=== PATIENT | male | born 1985 | race African-American/Black ===

== ENCOUNTER 2021-03-01 20:14 | Emergency (ER) | payer OTHER ==
[2021-03-01 20:18] VITALS: BP 152/90; PULSE 87; TEMP 98.1; BMI 29.2
[2021-03-01] MEDS ORDERED: KETOROLAC TROMETHAMINE 30 MG/1 ML VIAL IM ONE (20:29)
[2021-03-01] MEDS ORDERED: KETOROLAC TROMETHAMINE 30 MG/1 ML VIAL ONE (20:32)
== END 2021-03-01 21:20 | disposition home or self-care (01) ==
LOC: JERFT 20:14
PROC: 3E023GC Introduction of Other Therapeutic Substance into Muscle, Percutaneous Approach (ICD-10-PCS; principal; 2021-03-01)
DX: M54.2 Cervicalgia (principal); M25.531 Pain in right wrist; M25.532 Pain in left wrist; V49.40XA Driver injured in collision with unspecified motor vehicles in traffic accident, initial encounter
CPT/HCPCS: 73110-TC-LT-FY; 73110-TC-RT-FY; 99284-25